=== PATIENT | female | born 1975 | race Caucasian/White ===

== ENCOUNTER 2020-08-17 12:28 | Emergency (ER) | payer BC, OTHER ==
--- NOTE | 2020-08-17 14:08 | RAD REPORT ---
EXAM DESCRIPTION: CT - Stone Protocol - 08/17/2020 1:45 pm CLINICAL HISTORY: Flank pain. right lower back pain, abdominal pain COMPARISON: TRANSVAGINAL STUDY PROBE dated 12/23/2012 TECHNIQUE: Axial images were obtained without oral or IV contrast. Lack of contrast limits solid org an and vascular assessment. The [id number] spans the entirety of the system partially obscuring uppermost abdomen and lung bases. Coronal reformatted images were obtained and reviewed. All CT scans are performed using dose optimization technique as appropriate and may include automated exposure control or mA/KV adjustment according to patient size. FINDINGS: The lower lung lynch are clear. Imaged portions of the liver and spleen show no suspicious findings on non-contrast imaging.Cholelith iasis. The pancreas and adrenal glands are normal. No pathologic lymphadenopathy in the abdomen or pe lvis. No urinary tract stones or obstructive uropathy. No bowel obstruction, free air, free fluid or abscess. Normal appendix noted.4.2 cm fatty mass in the posterior pelvis likely represents an ovarian dermoid. The adjacent tissues in the posterior left pe lvis also appears prominent which may indicate enlarged left ovary. Mild degenerative levoscoliosis of the lumbar spine. IMPRESSION: No urinary tract stones or obstructive uropathy. The left ovary is suspected to be enlarged and appears to contain a 4.2 cm fatty mass compatible with ovarian dermoid. Recommend follow-up transvaginal pelvic ultrasound. Cholelithiasis.
[2020-08-17 14:11] LABS: AST/SGOT 8 U/L (15-37); Absolute Lymphocytes (CBC) 1.9 K/uL (0.7-4.9); Albumin 3.1 g/dL (3.4-5.0); Alkaline Phosphatase 57 U/L (45-117); BUN Blood Urea Nitrogen 15 mg/dL (7-18); Basophils % 0.5 % (0-1.3); Bicarbonate 27 mmol/L (21-32); Bilirubin Direct < 0.1 mg/dL (0-0.2); Bilirubin Total 0.3 mg/dL (0.2-1.0); Glucose Level 90 mg/dL (74-106); Hematocrit 32.4 % (36.0-45.0); Lipase 66 U/L (73-393); Lymphocytes % 37.3 % (15.3-44.8); MPV 7.5 fL (7.6-11.3); Potassium 3.9 mmol/L (3.5-5.1); Protein, Total 8.7 g/dL (6.4-8.2); RBC Red Blood Cell Count 4.65 M/uL (3.86-4.86); Sodium Level 139 mmol/L (136-145)
[2020-08-17 14:14] LABS: ALT/SGPT < 6 U/L (12-78)
[2020-08-17] MEDS ORDERED: ONDANSETRON 4 MG/2 ML VIAL ONE (14:21)
[2020-08-17] MEDS ORDERED: MORPHINE 4 MG/ML SYR ONE (14:21)
--- NOTE | 2020-08-17 15:23 | ER ---
Nurse's Notes [facility] Name: Angelique Gonzalez Age: 45 yrs Sex: Female : 1975 Arrival Date: 08/17/2020 Time: 12:35 Bed 23 Private MD: Diagnosis: Low back pain Presentation: 08/17 12:39 Chief complaint: Patient states: R lower back pain for a few days. Hard to move and get ll1 out of bed since yesterday. No N/V/D. No fever. No dysuria. Coronavirus screen: Client denies travel out of the [place] in the last 14 days. At this time, the client does not indicate any symptoms associated with coronavirus-19. Ebola Screen: Patient denies travel to an Ebola-affected area in the 21 days before illness onset. Initial Sepsis Screen: Does the patient meet any 2 criteria? HR > 90 bpm. No. Patient's initial sepsis screen is negative. Initial Sepsis Screen: Does the patient have a suspected source of infection? Yes: Other: low back pain. Risk Assessment: Do you want to hurt yourself or someone else? Patient reports no desire to harm self or others. Onset of symptoms was August 13, 2020. 12:39 Method Of Arrival: Ambulatory ll1 12:39 Acuity: SHELBY 4 ll1 Historical: - Allergies: 12:39 No Known Allergies; ll1 - PMHx: 12:39 Rheumatoid Arthritis; ll1 - PSHx: 12:39 fibroid removed; L knee sx; ll1 - Immunization history:: Flu vaccine is not up to date. - Social history:: Smoking status: Patient denies any tobacco usage or history of. Screenin:45 Abuse screen: Denies threats or abuse. Denies injuries from another. Nutritional ph screening: No deficits noted. Tuberculosis screening: No symptoms or risk factors identified. Fall Risk None identified. Assessment: 13:30 General: Appears in no apparent distress. comfortable, well groomed, Behavior is calm, ph cooperative, appropriate for age, Denies fever, feeling ill. Pain: Complains of pain in right low back Pain radiates to abdomen. Neuro: Level of Consciousness is awake, alert, obeys commands, Oriented to person, place, time, situation. Cardiovascular: Capillary refill < 3 seconds in bilateral fingers Patient's skin is warm and dry. Respiratory: Airway is patent Respiratory effort is even, unlabored, Respiratory pattern is regular, symmetrical. GI: Reports lower abdominal pain, Patient currently denies diarrhea, nausea, vomiting. : Reports pain in right in lower back. Derm: Skin is intact, is healthy with good turgor, Skin is pink, warm \T\ dry. Musculoskeletal: Circulation, motion, and sensation intact. Range of motion: intact in all extremities. 15:00 Reassessment: Patient appears in no apparent distress at this time. Patient and/or ph family updated on plan of care and expected duration. Pain level reassessed. Patient is alert, oriented x 3, equal unlabored respirations, skin warm/dry/pink. Vital Signs: 12:39 BP 121 / 91; Pulse 106; Resp 16; Temp 98.0; Pulse Ox 97% ; Weight 90.72 kg; Height 5 ll1 ft. 6 in. (167.64 cm); Pain 7/10; 14:25 BP 106 / 68; Pulse 77; Resp 18; Pulse Ox 94% on R/A; ph 15:30 BP 109 / 72; Pulse 76; Resp 18; Temp 98.0; Pulse Ox 99% on R/A; ph 12:39 Body Mass Index 32.28 (90.72 kg, 167.64 cm) ll1 ED Course: 12:35 Patient arrived in ED. ll1 12:35 Arm band placed on. ll1 12:41 Triage completed. ll1 12:42 Glendy Wayne, BRIANA is Primary Nurse. ph 12:44 [facility]x Taylor [facility] 12:44 Tee Benton MD is Attending Physician. m 12:46 Patient has correct armband on for positive identification. Bed in low position. Call ph light in reach. Side rails up X 1. Pulse ox on. NIBP on. 13:45 CT Stone Protocol In Process Unspecified. EDMS 15:59 No provider procedures requiring assistance completed. IV discontinued, intact, ph bleeding controlled, No redness/swelling at site. Pressure dressing applied. Administered Medications: 14:13 Drug: Zofran (Ondansetron) 4 mg Route: IVP; Site: right antecubital; ph 15:59 Follow up: Response: No adverse reaction ph 14:15 Drug: morphine 4 mg Route: IVP; Site: right antecubital; ph 15:58 Follow up: Response: No adverse reaction; Pain is decreased; RASS: Alert and Calm (0) ph Outcome: 15:23 Discharge ordered by MD. mckeon 15:59 Discharged to home via wheelchair, with family. ph 15:59 Condition: good 15:59 Discharge instructions given to patient, Instructed on discharge instructions, follow up and referral plans. medication usage, Demonstrated understanding of instructions, follow-up care, medications, Prescriptions given X 2. 16:00 Patient left the ED. ph Signatures: Dispatcher [employer] EDMS Alexx Taylor PA PA jmm Hall, Patricia, RN RN ph Noam Vela RN RN ll1
--- NOTE | 2020-08-17 15:23 | EDPHYS ---
Physician Documentation [facility] Name: Angelique Gonzalez Age: 45 yrs Sex: Female : 1975 Arrival Date: 08/17/2020 Time: 12:35 Bed 23 Private MD: ED Physician Tee Benton HPI: 08/17 13:26 This 45 yrs old Female presents to ER via Ambulatory with complaints of Back jmm Pain. 13:26 The patient presents with pain that is acute. Onset: The symptoms/episode jmm began/occurred gradually, 3 day(s) ago. The pain radiates to the abdomen. Associated signs and symptoms: Pertinent negatives: dysuria, fever, hematuria, numbness, tingling, urinary retention, weakness. Modifying factors: The patient symptoms are alleviated by nothing, the patient symptoms are aggravated by movement. The patient has not experienced similar symptoms in the past. This is a 45 year old female with a history of RA that presents to the ED with complaints of right sided back pain beginning approx 3 days. Denies injury, denies dysuria, denies radiation of pain. Pain will occasionally radiate to the right lower abdomen. . Historical: - Allergies: 12:39 No Known Allergies; ll1 - PMHx: 12:39 Rheumatoid Arthritis; ll1 - PSHx: 12:39 fibroid removed; L knee sx; ll1 - Immunization history:: Flu vaccine is not up to date. - Social history:: Smoking status: Patient denies any tobacco usage or history of. ROS: 13:26 Constitutional: Negative for fever, chills, and weight loss, Cardiovascular: Negative jmm for chest pain, palpitations, and edema, Respiratory: Negative for shortness of breath, cough, wheezing, and pleuritic chest pain. 13:26 Abdomen/GI: Positive for abdominal pain. 13:26 Back: Positive for pain with movement. 13:26 All other systems are negative. Exam: 13:26 Constitutional: This is a well developed, well nourished patient who is awake, alert, jmm and in no acute distress. Head/Face: atraumatic. Eyes: EOMI, no conjunctival erythema appreciated ENT: Moist Mucus Membranes Neck: Trachea midline, Supple Chest/axilla: Normal chest wall appearance and motion. Cardiovascular: Regular rate and rhythm. No edema appreciated Respiratory: Normal respirations, no respiratory distress appreciated Abdomen/GI: Non distended, soft Back: Normal ROM Skin: General appearance color normal MS/ Extremity: Moves all extremities, no obvious deformities appreciated, no edema noted to the lower extremities Neuro: Awake and alert, normal gait Psych: Behavior is normal, Mood is normal, Patient is cooperative and pleasant 13:26 Back: right lower lumbar pain on palpation. 13:26 Neuro: Orientation: is normal, Mentation: is normal, Memory: is normal, extensor hallucis longus intact bilaterally. 13:26 Psych: Behavior/mood is pleasant, cooperative. Vital Signs: 12:39 BP 121 / 91; Pulse 106; Resp 16; Temp 98.0; Pulse Ox 97% ; Weight 90.72 kg; Height 5 ll1 ft. 6 in. (167.64 cm); Pain 7/10; 14:25 BP 106 / 68; Pulse 77; Resp 18; Pulse Ox 94% on R/A; ph 15:30 BP 109 / 72; Pulse 76; Resp 18; Temp 98.0; Pulse Ox 99% on R/A; ph 12:39 Body Mass Index 32.28 (90.72 kg, 167.64 cm) ll1 MDM: 13:22 Patient medically screened. [facility] 15:22 Data reviewed: vital signs, nurses notes. Counseling: I had a detailed discussion with mike the patient and/or guardian regarding: the historical points, exam findings, and any diagnostic results supporting the discharge/admit diagnosis, lab results, radiology results, the need for outpatient follow up, to return to the emergency department if symptoms worsen or persist or if there are any questions or concerns that arise at home. ED course: Pain decreased in the ED. I do not suspect cor dcompression, cauda equina, abscess. I discussed CT findings with the patient along with the need for further evaluation by STAMP CLASSIFIER. Patient understood and agrees with the plan of care. . 08/17 13:25 Order name: Basic Metabolic Panel; Complete Time: 14:32 [facility] 08/17 13:25 Order name: CBC with Diff; Complete Time: 14:36 [facility] 08/17 13:25 Order name: Hepatic Function; Complete Time: 14:32 [facility] 08/17 13:25 Order name: Lipase; Complete Time: 14:32 [facility] 08/17 13:25 Order name: CT Stone Protocol; Complete Time: 14:09 [facility] 08/17 13:25 Order name: IV Saline Lock; Complete Time: 14: [facility] 08/17 13:25 Order name: Labs collected and sent; Complete Time: : [facility] Administered Medications: 14:13 Drug: Zofran (Ondansetron) 4 mg Route: IVP; Site: right antecubital; ph 15:59 Follow up: Response: No adverse reaction ph 14:15 Drug: morphine 4 mg Route: IVP; Site: right antecubital; ph 15:58 Follow up: Response: No adverse reaction; Pain is decreased; RASS: Alert and Calm (0) ph Disposition: 08/17/20 15:23 Discharged to Home. Impression: Low back pain. - Condition is Stable. - Discharge Instructions: Back Pain, Adult. - Prescriptions for Prednisone 20 mg Oral Tablet - take 3 tablet by ORAL route once daily for 5 days; 15 tablet. Zanaflex 4 mg Oral Tablet - take 1 tablet by ORAL route every 8 hours As needed; 20 tablet. - Medication Reconciliation Form, Thank You Letter, Antibiotic Education, Prescription Opioid Use, Work release form form. - Follow up: Private Physician; When: 2 - 3 days; Reason: Recheck today's complaints, Continuance of care, Re-evaluation by your physician. Addendum: 08/20/2020 10:02 Co-signature as Attending Physician, Tee Benton MD. r n Signatures: Dispatcher [employer] EDMS Alexx Taylor PA PA [facility] Tee Benton MD MD rn Hall, Patricia, RN RN Noam Vela RN RN [facility]: (The following items were deleted from the chart) 08/17 16:00 15:23 08/17/2020 15:23 Discharged to Home. Impression: Low back pain. Condition is ph Stable. Forms are Medication Reconciliation Form, Thank You Letter, Antibiotic Education, Prescription Opioid Use. Follow up: Private Physician; When: 2 - 3 days; Reason: Recheck today's complaints, Continuance of care, Re-evaluation by your physician. [facility]
[2020-08-17 16:09] VITALS: TEMP 98
[2020-08-17 16:11] VITALS: BP 109/72; O2SAT 99
== END 2020-08-17 16:00 | disposition home or self-care (01) ==
LOC: ER 12:28
DX: M54.5 Low back pain (principal)
CPT/HCPCS: 36415; 74176; 76377; 80048; 80076; 83690; 85025; 96374; 96375; 99284; J2405

== ENCOUNTER 2024-09-25 11:19 | Observation (INO) | payer BC ==
[2024-09-25 11:35] VITALS: BMI 22.4
[2024-09-25] MEDS ORDERED: DIPHENHYDRAMINE 25 MG TAB/CAP PO PRN (11:54)
[2024-09-25 12:06] LABS: Absolute Basophils 0.1 K/uL (0-0.5); Absolute Lymphocytes (CBC) 1.7 K/uL (0.7-4.9); Absolute Monocytes 0.4 K/uL (0.1-1.3); Absolute Neutrophil 2.5 K/uL (1.8-8.0); Basophils % 1.1 % (0-1.3); Eosinophils % 0.3 % (0-4.4); Lymphocytes % 35.6 % (15.3-44.8); MCH 15.4 pg (27.0-35.0); MCHC 29.1 g/dL (32.0-36.0); MCV 52.8 fL (80-100); MPV 8.1 fL (7.6-11.3); Monocytes % 8.8 % (3.3-12.3); Neutrophils % 54.2 % (41.7-73.7); Platelets 643 thou/uL (152-406); RBC Red Blood Cell Count 4.54 M/uL (3.86-4.86); Red Cell Distribution Width 21.1 % (12.1-15.2)
[2024-09-25 12:36] LABS: Anisocytosis 1+; Blood Morphology Comment NOTED (NOT SEEN); Hypochromasia 3+; Microcytosis 3+; Platelet Estimate INCR; White Blood Cell Scan OK (OK)
--- NOTE | 2024-09-25 13:00 | RAD REPORT ---
EXAMINATION: TWO VIEW CHEST XR CLINICAL INDICATION: PNA rule out TECHNIQUE: 2 views of the chest was performed. COMPARISON: No prior exam. FINDINGS: Opacity in the left lung base anteriorly likely prominent fat pad. The lungs are clear of acute infil trate. The heart is normal in size. No displaced fractures evident.
[2024-09-25 13:05] LABS: Influenza A Ag Positive; Influenza B Ag Negative; SARS-CoV-2 Antigen Rapid Res Negative (Negative)
[2024-09-25] MEDS: NA CHLORIDE 0.9% 250 ML ONE ×2 (13:32→17:14)
[2024-09-25] MEDS ORDERED: SODIUM CHLORIDE 0.9% 10ML INJ IV PRN (14:23)
--- NOTE | 2024-09-25 15:35 | RAD REPORT ---
EXAMINATION: COMPLETE ABDOMINAL ULTRASOUND CLINICAL INDICATION: Female, 49 years, lymphadenopathy TECHNIQUE: Grayscale ultrasonography of the abdomen was performed. [id number]. COMPARISON: No prior exam. FINDINGS: LIVER: Increased echogenicity with reduced sonographic penetration and without focal mass. GALLBLADDER: Cholelithiasis. No gallbladder wall thickening. No sonographic Greene sign. BILE DUCTS: Intrahepatic and extrahepatic bile ducts appear normal. Measured near the fabricio hepatis , the common bile duct is 4 mm RIGHT KIDNEY: Right renal length measurement: 11.5 cm. Normal in echogenicity and size. No calculus, solid mass or hydronephrosis. LEFT KIDNEY: Left renal length measurement: 11.8 cm. Normal in echogenicity and size. No calculus, s olid mass or hydronephrosis. SPLEEN: Normal in echogenicity, with length of 11.1 cm PANCREAS: The visualized pancreas is normal in size and echogenicity. AORTA AND INFERIOR VENA CAVA: Visualized segments of the aorta and inferior vena cava are normal. ASCITES: None. ADDITIONAL FINDINGS: None. IMPRESSION: Cholelithiasis without sonographic evidence of acute cholecystitis. No biliary ductal dilatation. Mil d hepatic steatosis.
[2024-09-25] MEDS: PANTOPRAZOLE 40 MG INJ IVP SCH (21:00)
[2024-09-25] MEDS: OSELTAMIVIR 75 MG CAP PO SCH (21:00)
[2024-09-25] MEDS: NACHLORIDE 0.45% 1,000 ML IV SCH (21:12)
[2024-09-25 23:47] LABS: Hematocrit 26.2 % (36.0-45.0)
[2024-09-26 01:19] VITALS: O2SAT 100
--- NOTE | 2024-09-26 08:07 | P.DS ---
Admission Date: 09/25/24 Discharge Date: 09/26/24 Disposition: ROUTINE DISCHARGE Discharge Condition: [facility] Hospital Course: SCHUYLER HAS SEVERE RA WITH CONRACTURES. SHE HAS NOT BEEN TO [facility] FOR 6 YEARS. SHE TAKES IBUPROFEN DAILY. HER HG WAS DOWNTO 6 GM WITH NO SS. SHE IS GIVEN TWO UNITS OF BLOOD AND IS UP TO 8 NOW. SHE IS STABLE. [facility] WILL [facility] SHE HAS PEPCID BID AT PHARMACY. SHE IS FLU POS BUT HAS NO SYMPTOMS. WILL AVOID MEDS. Vital Signs/Physical Exam: Temp Pulse Resp BP Pulse Ox 98.7 F 79 16 106/57 L 97 09/26/24 04:00 09/26/24 04:00 09/26/24 04:00 09/26/24 04:00 09/26/24 04:00 Laboratory Data at Discharge: WBC 4.70 thou/uL (4.3-10.9) 09/25/24 11:54 Hgb 8.0 g/dL (12.0-15.0) L D 09/25/24 23:36 Hct 26.2 % (36.0-45.0) L 09/25/24 23:36 Plt Count 643 thou/uL (152-406) H 09/25/24 11:54 Home Medications: Escitalopram Oxalate [Lexapro] 10 mg PO DAILY 09/25/24 Followup: Neo Greenwood MD [Primary Care Provider] -
[2024-09-26] MEDS: ESCITALOPRAM OXALATE 10 MG TABLET PO SCH (08:09)
[2024-09-26] MEDS: ACETAMINOPHEN 325 MG TABLET PO PRN (08:09)
[2024-09-26 09:45] VITALS: BP 102/61; TEMP 97.7
== END 2024-09-26 11:12 | disposition home or self-care (01) ==
LOC: 2ND 11:19
PROVIDERS: ADMIT Internal Medicine; ATTEND Internal Medicine
PROC: 30233N1 Transfusion of Nonautologous Red Blood Cells into Peripheral Vein, Percutaneous Approach (ICD-10-PCS; principal; 2024-09-25)
DX: D64.9 Anemia, unspecified (principal); M06.9 Rheumatoid arthritis, unspecified; J09.X2 Influenza due to identified novel influenza A virus with other respiratory manifestations
CPT/HCPCS: 85025; 36415; 86900; 86850; 86901; 86920 ×2; 85018; 85014; 71046; 76700; 87428; 36430; J2470 ×2; P9016 ×2; J7050 ×2; G0379; G0378 ×2